=== PATIENT | female | born 2000 | race Caucasian/White ===

== ENCOUNTER 2023-01-28 15:27 | Inpatient (IN) | payer MEDICAID ==
[~2023-01-28] VITALS: Ht 154.9 cm; Wt 65.9 kg
[2023-01-28 15:32] VITALS: BP 97/57; PULSE 56; TEMP 97.9
--- NOTE | 2023-01-28 15:47 | NUR ---
PATIENT BROUGHT TO FLOOR AT APPROXIMATELY 1535. INTAKE AND EXAM PERFORMED. PATIENT ADMITTED WITH IV TO RIGHT AC. ORDERS FOR LR FOR PRE-OP FLUIDS. PATIENT REPORTS PAIN 4/10. PATIENT TAKEN OFF OF FLOOR FOR SURGERY AT APPROXIMATELY 1548.
[2023-01-28] MEDS ORDERED: PERCOCET 325 MG1 TA2 PO (16:12)
[2023-01-28] MEDS ORDERED: MOTRIN 600600 MG/TAB PO (16:13)
--- NOTE | 2023-01-28 17:40 | NUR ---
PATIENT BROUGHT TO FLOOR FROM PACU AT APPROXIMATELY 1730
[2023-01-28 18:00] VITALS: BP 97/57; PULSE 56; TEMP 97.6
[2023-01-28 18:15] VITALS: BP 98/60; PULSE 67
[2023-01-28 18:28] VITALS: TEMP 97.8
[2023-01-28 18:30] VITALS: BP 108/63; PULSE 67
--- NOTE | 2023-01-28 18:40 | NUR ---
PATIENT TOLERATING PO. DENIES ANY N/V. PATIENT TO GET UP TO BATHROOM. POST OP VITALS RUNNING FOR ONE HOUR.
--- NOTE | 2023-01-28 19:00 | NUR ---
PT READY FOR DISCHARGE. INSTRUCTIONS REVIEWED WITH PT, INT DC'D, ANGIOCATH INTACT.
--- NOTE | 2023-01-28 19:18 | NUR ---
PT DISCHARGED VIA AMBULATORY STATUS. COPY OF DISCHARGE INSTRUCTIONS SENT WITH PT. PERSONAL BELONGINGS WITH PT.
== END 2023-01-28 19:18 | disposition home or self-care (01) | DRG 343 ==
LOC: SURG 15:27
PROVIDERS: ADMIT Surgery
PROC: 0DTJ4ZZ Resection of Appendix, Percutaneous Endoscopic Approach (ICD-10-PCS; principal; 2023-01-28 17:00)
DX: K35.80 Unspecified acute appendicitis (principal)
CPT/HCPCS: OP; J0330; J0690; J1100; J1885; J2250; J2405; J2704; J3010; J7120